=== PATIENT | male | born 1965 | race Caucasian/White ===

== ENCOUNTER 2021-03-02 12:09 | Emergency (ER) | payer OTHER, SELFPAY ==
[2021-03-02 12:25] VITALS: BP 111/69; PULSE 97; RESP 16; TEMP 36.4; O2SAT 98; BMI 38.0
--- NOTE | 2021-03-02 12:44 | ED.WOUNDLAC ---
HPI - Wound/Laceration General Chief Complaint: Wound/Laceration <TEJINDER Kurtz - Last Filed: 03/07/21 14:22> Stated Complaint: L ARM LACERATION WORK RELATED <TEJINDER Kurtz - Last Filed: 03/07/21 14:22> Time Seen by Provider: 03/02/21 12:43 <TEJINDER Kurtz - Last Filed: 03/07/21 14:22> History of Present Illness HPI narrative: Patient complains of left elbow laceration at work when he cut it on a piece of sheet metal, no numbness weakness or tingling, no other injury <TEJINDER Kurtz - Last Filed: 03/07/21 14:22> Related Data Allergies/Adverse Reactions: Allergies Allergy/AdvReac Type Severity Reaction Status Date / Time No Known Allergies Allergy Verified 03/02/21 12:46 <TEJINDER Kurtz - Last Filed: 03/07/21 14:22> Review of Systems Review of Systems: Positive for left elbow laceration negatives are no fever no chills no dizziness no weakness no fainting no chest pain no shortness of breath no numbness weakness or tingling no joint pains <TEJINDER Kurtz - Last Filed: 03/07/21 14:22> Yes all other systems are reviewed and are negative <TEJINDER Kurtz - Last Filed: 03/07/21 14:22> [facility] Past Medical History Source: nursing notes reviewed <TEJINDER Kurtz - Last Filed: 03/07/21 14:22> Medical History: Medical History (Updated 03/03/21 @ 00:01 by Jeronimo Bang) Hernia Hypertension Myocardial infarct, old <TEJINDER Kurtz - Last Filed: 03/07/21 14:22> Social History Social History: Social History Advance Directives: No Advance Directives Information Provided: No <TEJINDER Kurtz Last Filed: 03/07/21 14:22> Physical Exam Vital Signs: Vital Signs: Last Vital Signs Temp 97.6 F 03/02/21 12:25 Pulse 97 03/02/21 12:25 Resp 16 03/02/21 12:25 BP 111/69 03/02/21 12:25 Pulse Ox 98 03/02/21 12:25 Body Mass Index 38.0 <TEJINDER Kurtz - Last Filed: 03/07/21 14:22> Vital Signs: Last Vital Signs Temp 97.6 F 03/02/21 12:25 Pulse 97 03/02/21 12:25 Resp 16 03/02/21 12:25 BP 111/69 03/02/21 12:25 Pulse Ox 98 03/02/21 12:25 Body Mass Index 38.0 <Babar Mccartney MD - Last Filed: 04/14/21 18:05> General appearance is comfortable no acute distress The neck is supple Respiratory no acute distress Extremities is full range of motion x4 Including right elbow which has full range of motion it does have a 2.5 cm subcutaneous laceration to the dorsum of the right elbow there is no joint tenderness it is neurovascular intact distal Neuro no gross motor or sensory deficit <TEJINDER Kurtz - Last Filed: 03/07/21 14:22> Course Course Course Narrative: Procedure note for right elbow laceration Anesthesia was 6 cc of 1% lidocaine with good anesthesia It was irrigated with normal saline and no foreign body was observed when wound was examined It was closed with 6 4-0 nylon sutures Bleeding controlled no complications <TEJINDER Kurtz - Last Filed: 03/07/21 14:22> I have reviewed the chart <Babar Mccartney MD - Last Filed: 04/14/21 18:05> Discharge Plan Discharge Clinical Impression: Laceration <TEJINDER Kurtz - Last Filed: 03/07/21 14:22> Patient Disposition: Home, Self-Care <TEJINDER Kurtz - Last Filed: 03/07/21 14:22> Additional Instructions: Stitches out 10-14 days Return any sign of infection, redness swelling fever pain, red stripe up arm, discharge from wound, any worse condition Stitches out in 10-14 days, you can follow with work connection for work related injury <TEJINDER Kurtz - Last Filed: 03/07/21 14:22> Referrals: Osbaldo Contreras MD [Physician] - 2 days Chani Rodarte PA [Physician Road Machine Operator] - 2 days <TEJINDER Kurtz - Last Filed: 03/07/21 14:22> Interventions: ED Discharge Assessment Last Done: 03/02/21 14:13 <TEJINDER Kurtz - Last Filed: 03/07/21 14:22> Discharge Date/Time: 03/02/21 14:14 <TEJINDER Kurtz - Last Filed: 03/07/21 14:22>
[2021-03-02] MEDS: Diphth,Pertus(ACell),Tet Adult 0.5 ML SYRINGE IM (13:23)
[2021-03-02] MEDS: Lidocaine HCl 1 % MPF 5 ML VIAL SUBCUT ×2 (13:24→13:25)
== END 2021-03-02 14:14 | disposition home or self-care (01) ==
PROVIDERS: Emergency Provider Emergency Medicine; PCP Pediatrics
DX: S51.012A Laceration without foreign body of left elbow, initial encounter (principal); W26.8XXA Contact with other sharp object(s), not elsewhere classified, initial encounter; Y93.89 Activity, other specified; Y92.9 Unspecified place or not applicable; Y99.0 Civilian activity done for income or pay
CPT/HCPCS: 12001; 90471; 90715; 99283; 99284